=== PATIENT | female | born 1970 | race Caucasian/White ===

== ENCOUNTER 2020-03-15 14:59 | Outpatient (CLI) | payer OTHER, SELFPAY ==
--- NOTE | ~2020-03-15 | MM_ITS ---
EXAMINATION: MM scrn nicola implant BI w rupali HISTORY: Screening mammogram TECHNIQUE: Craniocaudal and mediolateral oblique 3-D tomosynthesis images with implant displacement a nd synthetic 2-D images were generated. Craniocaudal and mediolateral oblique views of the breasts wi thout implant displacement were obtained using full field digital mammography. CAD analysis was submi tted and interpreted. COMPARISON: 11/26/2018, 06/18/2016, 06/12/2016, 12/21/2014 BREAST PARENCHYMAL COMPOSITION: There are scattered areas of fibroglandular density. FINDINGS: There is no evidence of suspicious mass, calcification, or architectural distortion to sugg est malignancy in either breast. There has been no suspicious interval change. IMPRESSION: 1. No mammographic evidence of malignancy. 2. Recommend routine screening mammography in one year. BI-RADS Category 1: Negative Reviewed, dictated and finalized at location A.
== END 2020-03-15 15:00 | disposition home or self-care (01) ==
DX: Z12.31 Encounter for screening mammogram for malignant neoplasm of breast (principal)
CPT/HCPCS: 77063; 77067

== ENCOUNTER 2022-03-21 14:16 | Outpatient (CLI) | payer OTHER, SELFPAY ==
--- NOTE | ~2022-03-21 | MM_ITS ---
EXAMINATION: MM scrn nicola implant BI w rupali HISTORY: Screening mammogram TECHNIQUE: Craniocaudal and mediolateral oblique 3-D tomosynthesis images with implant displacement a nd synthetic 2-D images were generated. Craniocaudal and mediolateral oblique views of the breasts wi thout implant displacement were obtained using full field digital mammography. CAD analysis was submi tted and interpreted. COMPARISON: 03/15/2020, 11/26/2018, 06/12/2016 BREAST PARENCHYMAL COMPOSITION: There are scattered areas of fibroglandular density. FINDINGS: There is no evidence of suspicious mass, calcification, or architectural distortion to sugg est malignancy in either breast. There has been no suspicious interval change. IMPRESSION: 1. No mammographic evidence of malignancy. 2. Recommend routine screening mammography in one year. BI-RADS Category 1: Negative Reviewed, dictated and finalized at location A.
== END 2022-03-21 14:17 | disposition home or self-care (01) ==
DX: Z12.31 Encounter for screening mammogram for malignant neoplasm of breast (principal)
CPT/HCPCS: 77063; 77067

== ENCOUNTER 2023-07-08 09:49 | Outpatient (CLI) | payer OTHER, SELFPAY ==
--- NOTE | ~2023-07-08 | MM_ITS ---
EXAMINATION: MM scrn nicola implant BI w rupali HISTORY: Screening mammogram TECHNIQUE: Craniocaudal and mediolateral oblique 3-D tomosynthesis images with implant displacement a nd synthetic 2-D images were generated. Craniocaudal and mediolateral oblique views of the breasts wi thout implant displacement were obtained using full field digital mammography. CAD analysis was submi tted and interpreted. COMPARISON: 03/21/2022, 03/15/2020, 11/26/2018, 06/18/2016, 06/12/2016 BREAST PARENCHYMAL COMPOSITION: There are scattered areas of fibroglandular density. FINDINGS: There is no evidence of suspicious mass, calcification, or architectural distortion to sugg est malignancy in either breast. There has been no suspicious interval change. IMPRESSION: 1. No mammographic evidence of malignancy. 2. Recommend routine screening mammography in one year. BI-RADS Category 1: Negative Reviewed, dictated and finalized at location A. ANT POLISHER
== END 2023-07-08 09:50 | disposition home or self-care (01) ==
LOC: ANHIMG 09:53
DX: Z12.31 Encounter for screening mammogram for malignant neoplasm of breast (principal)
CPT/HCPCS: 77063; 77067

== ENCOUNTER 2025-03-01 13:33 | Outpatient (CLI) | payer OTHER, SELFPAY ==
--- NOTE | ~2025-03-01 | MM_ITS ---
EXAMINATION: MM scrn nicola implant BI w rupali INDICATION: Asymptomatic, referred for screening mammogram COMPARISON: 07/08/2023 through 03/15/2020 TECHNIQUE: Digital Breast Tomosynthesis CC, MLO, and implant displaced CC and MLO views of Both breasts were obtained with computer-aided detection to assist in interpretation of the study. FINDINGS: There are scattered areas of fibroglandular density. Bilateral breast Retropectoral Saline implants in place appears intact. No focal dominant mass, architectural distortion, or suspicious microcalcifications are identified. There are no features to suggest malignancy. IMPRESSION: 1. No evidence of malignancy in the breasts. 2. Both breasts Retropectoral Saline implants appears intact. Recommend continued screening mammography BI-RADS 1, NEGATIVE Reviewed, dictated and finalized at location C.
--- OUTSIDE RECORDS SUMMARY | 2025-03-01 13:58 | XMS_ITS | Encounter Summary ---
Author Organization [facility] Address [address] [place] [address] Care Team Providers Care Group Art Supervisor Name Role Phone Amparo Barba Primary [facility] [place] Encounter Details Date Type Department Care Team ([facility] st Contact Info) Description 01/14/2023 Orders Only [facility] Medical Group Pain Management [address] [facility] [address] [place] [address] Nasima Kaur, RN Social History Tobacco Use Types Packs/Day Years Used Date Smoking Tobacco: Never Smokeless Tobacco: Never Alcohol Use Standard Drinks/Week Comments Yes 0 (1 standard drink = 0.6 oz pur e alcohol) social AUDIT-C Answer Date Recorded Q1: How often do you have a drink containing alc ohol? Monthly or less 11/07/2022 Q2: How many drinks containi ng alcohol do you have on a typical day when you are drinking? 1 or 2 11/07/2022 Q3: How often do you have si x or more drinks on one occasion? Monthly 11/07/2022 PHQ-2 Answer Date Recorded PHQ-2 Score 0 06/24/2021 Hunger Vital Sign Answer Date Recorded Within the past 12 months, y ou worried that your food would run out before you got the money to buy more. Never true 11/08/19 23 Within the past 12 months, t he food you bought just didn't last and you didn't have money to get more. Never true 11/07/2022 PRAPARE - Transportation Answer Date Re corded In the past 12 months, has l ack of transportation kept you from medical appointments or from getting medications? No 10/14 In the past 12 months, has l ack of transportation kept you from meetings, work, or from getting things needed for daily living? No 11/07/2022 Comments No Sex and Gender Information Value Date Recorded Sex Assigned at Not on file Legal Sex Female 10:16 PM CDT Gender Identity Not on file Sexual Orientation Not on file COVID-19 Exposure Response Date Recorded In the last 10 days, have yo u been in contact with someone who was confirmed or suspected to have Coronavirus/COVID-19? No / Unsure 12/29/2022 2:25 PM CDT documented as of this encounter Plan of Treatment Not on file documented as of this encounter Visit Diagnoses Not on filedocumented in this encounter Additional Health Concerns Infection Onset Date Last Indicated Resolved Time R/O COVID-19 02/14/2025 02/14/2025 02/14/2025 8:16 PM CDT COVID-19 02/14/2025 02/14/2025 documented as of this encounter Care Teams Group Art Supervisor Relationship Specialty Start Date End Date Amparo Barba PA [address] [place] [address] PCP - General Physician Stereo Equipment Repairer 05/22/22 documented as of this encounter
--- OUTSIDE RECORDS SUMMARY | 2025-03-01 13:58 | XMS_ITS | Encounter Summary ---
Author Organization [facility] Address [address] [place] [address] Care Team Providers Care Ela Teacher Name Role Phone Amparo Barba Primary [facility] [place] Encounter Details Date Type Department Care Team (Late st Contact Info) Description 07/10/2021 Orders Only [facility] Medical Group Family Medicine [address] [place] [address] Bibiana Holland CMA Social History Tobacco Use Types Packs/Day Years Used Date Smoking Tobacco: Never Smokeless Tobacco: Never Alcohol Use Standard Drinks/Week Comments Yes 0 (1 standard drink = 0.6 oz pur e alcohol) social PHQ-2 Answer Date Recorded PHQ-2 Score 0 06/24/2021 Comments No Sex and Gender Information Value Date Recorded Sex Assigned at Not on file Legal Sex Female 10:16 PM CDT Gender Identity Not on file Sexual Orientation Not on file documented as of this encounter Plan of Treatment Not on file documented as of this encounter Visit Diagnoses Not on filedocumented in this encounter Additional Health Concerns Infection Onset Date Last Indicated Resolved Time R/O COVID-19 11/05/2022 11/05/2022 11/05/2022 6:58 PM CDT R/O COVID-19 02/14/2025 02/14/2025 02/14/2025 8:16 PM CDT COVID-19 02/14/2025 02/14/2025 documented as of this encounter Care Teams Ela Teacher Relationship Specialty Start Date End Date Amparo Barba PA [address] [place] [address] PCP - General Physician Assisted Living Administrator 05/22/22 documented as of this encounter
--- OUTSIDE RECORDS SUMMARY | 2025-03-01 13:58 | XMS_ITS | Encounter Summary ---
Author Organization [facility] Address [address] [place] [address] Care Team Providers Care Jordan Man Name Role Phone Amparo Barba Primary [facility] [place] Encounter Details Date Type Department Care Team (Late st Contact Info) Description 02/15/2025 Results Follow-Up [facility] [place] [address] [place] [address] Olinda Tierney PA [address] [place], [place] [id number] Covid, Influenza A,B, and RSV by PCR Social History Tobacco Use Types Packs/Day Years [...] Infection Onset Date Last Indicated Resolved Time COVID-19 02/14/2025 02/14/2025 documented as of this encounter Care Teams Jordan Man Relationship Specialty Start Date End Date Amparo Barba PA [address] [place] [address] PCP - General Physician Supervisor Mold Shop 05/22/22 documented as of this encounter
--- OUTSIDE RECORDS SUMMARY | 2025-03-01 13:58 | XMS_ITS | Clinical Summary ---
Author Organization [facility] Address [address] [place] [id number] Care Team Providers Care Shoe Fitter Name Role Phone Amparo Barba Primary [facility] [place] Allergies Active Allergy Reactions Criticality Noted Date Comments Cefazolin Other/Unknown (See Comments) 024 Fluconazole Other/Unknown (See Comments) 2022 Cephalexin Other/Unknown (See Comments) 024 Sulfa Antibiotics Other/Unknown (See Comments) Medium 11/04/2022 Vancomycin Hives Medium 11/05/2022 Medications UNABLE TO FIND bio estrogen and testosterone cream Active flecainide (TAMBOCOR) 150 MG tabletIndication s:Cardioversion of Atrial Fibrillation,Car dioversion of Atrial Flutter Take 1 tablet (150 mg) by mouth as needed Indications: Atrial Fibrillation Electrically Shocked to Normal Rhythm, Atrial Flutter Electrically Shocked to Normal Rhythm 3 tablet 02/23/20 25 026 Active rivaROXABAN (XARELTO) 20 MG tabletIndication s:Atrial Fibrillation Take 1 tablet (20 mg) by mouth daily Indications: Atrial Fibrillation 30 tablet 2 02/23/20 25 025 Active rivaROXABAN (XARELTO) 20 MG tablet Take 1 tablet (20 mg) by mouth daily 025 Discontin ued(Reord er) Active Problems Problem Noted Date Diagnosed Date Anxiety 02/02/2024 Depression 02/02/2024 Essential hypertension 02/02/2024 Menopausal depression 02/02/2024 Adnexal tenderness 02/02/2024 Paroxysmal atrial fibrillation 02/02/2024 Near syncope 02/02/2024 Obesity 02/02/2024 Syncope 02/02/2024 Encounters Date Type Department Care Team Description 02/22/2025 8:45 AM CDT Office Visit [facility] Cardiology [address] [place] [phone] Marcus Garcia PA Paroxysmal atrial fibrillation (HCC) (Primary Dx); Atrial flutter, paroxysmal (HCC); Encounter for loop recorder check; BMI 32.0-32.9,adult; Elevated blood pressure reading in office without diagnosis of hypertension 02/22/2025 Telephone [facility] Cardiology [address] [place] [phone] Marcus Garcia PA Other 02/14/2025 Telephone [facility] Cardiology [address] [place] [phone] Marcus Garcia PA Atrial Fibrillation from Last 3 Months Immunizations Immunization Administration Dates Next Due TD (Adult), Adsorbed 03/19/1999 Family History Medical History Relation Name Comments Heart Disease Other mother's family Relation Name Status Comments Other mother's family Social History Tobacco Use Types Packs/Day Years Used Date Smoking Tobacco: Never Tobacco Cessation:Counseling Given: No Alcohol Use Standard Drinks/Week Comments Yes 0 (1 standard drink = 0.6 oz pur e alcohol) occasional Alcohol Use Answer Date Recorded Frequency of Alcohol Consumption Not on file 02/02/2024 Average Number of Drinks Not on file 024 Frequency of Binge Drinking Not on file 01/14 Alcohol Use Status Yes 02/02/2024 Average alcohol consumption Not on file 01/14 Comments Unknown Sex and Gender Information Value Date Recorded Sex Assigned at Not on file Legal Sex Female 10:05 PM CDT Gender Identity Not on file Sexual Orientation Straight 02/02/2024 8: 50 PM CDT Last Filed Vital Signs Vital Sign Reading Time Taken Comments Blood Pressure 134/76 02/22/2025 9:12 AM CDT Pulse 57 02/22/2025 9:12 AM CDT Temperature 36.7 C (98.1 F) 11/24/2016 8:53 PM CDT Respiratory Rate 12 09/28/2023 12:00 AM CDT Oxygen Saturation 98% 02/22/2025 9:12 AM CDT Inhaled Oxygen Concentration - - Weight 92.1 kg (203 lb) 02/22/2025 9:12 AM CDT Height 167.6 cm (5' 6) 02/22/2025 9:12 AM CDT Body Mass Index 32.77 02/22/2025 9:12 AM CDT Plan of Treatment Health Maintenance Due Date Last Done Comments HIV Screening 1970 Hepatitis C Screening ages 1 8 to 79 once 1970 MMR VACCINES (1 of 1 - Standard series) 10/11/1972 DEPRESSION SCREENING 1983 BMI Above/Below Normal Parameters 10/11/1989 Diabetes Screening 10/11/1989 HEPATITIS B VACCINES (1 of 3 - 19+ 3-dose series) 10/11/1990 CERVICAL CANCER SCREENING 10/11/1992 ADULT TETANUS 03/19/2009 03/19/1999 BREAST CANCER SCREENING 2011 Colon Cancer Screening 10/11/2016 LIPID TESTING 10/11/2016 YEARLY WELLNESS EXAM 12/03/2019 12/02/2018, 02/16/2018 Zoster Vaccine (Recombinant Vaccine) (1 of 2) 10/11/2021 Influenza Vaccine 01/13/2025 COVID-19 Immunization ( season) 2025 HEPATITIS A VACCINES Aged Out No long er eligible based on patient's age to complete this topic HIB VACCINES Aged Out No longer eligi ble based on patient's age to complete this topic HPV VACCINES Aged Out No longer eligi ble based on patient's age to complete this topic IPV VACCINES Aged Out No longer eligi ble based on patient's age to complete this topic MENINGOCOCCAL VACCINE Aged Out No mariaelena lola eligible based on patient's age to complete this topic Meningococcal B Vaccine Aged Out No l onger eligible based on patient's age to complete this topic Pneumococcal Vaccine: Peds t o 50 & At-Risk Patients Aged Out No longer eligible based on patient's age to complete this topic ROTAVIRUS VACCINES Aged Out No longer eligible based on patient's age to complete this topic Medical Devices Implanted Type Area Erosion Control Coordinator Device Identifier Shelf Expiration Date Model / Serial / Lot Assert-Iq 3+-01/12/2023 Implanted:12/15 by Clarence Simon MD (Quantity not on file) Implantable Loop Recorder Hartley [id number] / [id number] / Procedures Procedure Name Priority Date/Time Associated Diagnosis Comments NON-INVASIVE CARDIOLOGY 02/14/2025 12:00 AM CDT NON-INVASIVE CARDIOLOGY 02/07/2025 12:00 AM CDT from Last 3 Months Results * NON-INVASIVE CARDIOLOGY (02/14/2025 12:00 AM CDT) Only the most recent of2 resultswithin the time period is included. Anatomical Region Laterality Modality Other us Clarence Simon MD TRANSCRIPTIONS Final Result from Last 3 Months Insurance Care Teams Shoe Fitter Relationship Specialty Start Date End Date Amparo Barba PA [address] [place] [id number] PCP - General Physician Direct Service Professional 02/02/24
--- OUTSIDE RECORDS SUMMARY | 2025-03-01 13:59 | XMS_ITS | Encounter Summary ---
Author Organization [facility] Address [address] [place] [address] Care Team Providers Care Sanitary Plumber Name Role Phone Amparo Barba Primary Care [facility] Encounter Details Date Type Department Care Team (Late st Contact Info) Description 12/30/2022 Orders Only [facility] [address] [place] [address] Gracie Guillermo MD [address] [place] [id number] Social History Tobacco Use Types Packs/Day Years [...] documented as of this encounter Care Teams Sanitary Plumber Relationship Specialty Start Date End Date Amparo Barba PA [address] [place] [address] PCP - General Physician Seed Core Operator 05/22/22 documented as of this encounter
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
--- OUTSIDE RECORDS SUMMARY | 2025-03-01 13:59 | XMS_ITS | Clinical Summary ---
Author Organization [facility] Address [address] [place] [address] Care Team Providers Care Software Systems Architect Name Role Phone Amparo Barba Primary Care [facility] Allergies Active Allergy Reactions Criticality Noted Date Comments Cefazolin Other (see comments) Medium 02/02/2024 Cephalexin Other (see comments) Medium 02/02/2024 Fluconazole 12/29/2022 Sulfa (Sulfonamide Antibiotics) Medium 10/14 Vancomycin Hives Medium 11/05/2022 Medications ESTRADIOL, BULK, MISC Use as directed Active apixaban (ELIQUIS) 5 mg tablet Take 1 tablet (5 mg total) by mouth 2 (two) times a day 02/18/20 Active HYDROcodone-aceta minophen (NORCO) 5-325 mg per tabletIndications :Cervical radiculopathy Take 1 tablet by mouth every 6 (six) hours as needed for severe pain 10 tablet 01/24/20 22 025 Discontinued acetaminophen-cod eine (TYLENOL #3) 300-30 mg per tabletIndications :Cellulitis of leg, right Take 1 tablet by mouth every 4 (four) hours as needed for moderate pain 12 tablet 11/05/19 23 025 Discontinued Active Problems Problem Noted Date Diagnosed Date Cellulitis of leg, right 11/06/2022 Cellulitis 11/05/2022 Chronic bilateral low back pain without sciatica 08/19/2021 Assessment & Plan (08/19/2021 3:58 PM [employer]): This has improved with the dry needling at her chiropractor. I will have her notify us if there are any changes. Chronic right shoulder pain 08/19/2021 Assessment & Plan (08/19/2021 3:59 PM [employer]): I will have her continue her current regimen of PT and to continue to follow with her orthopedic surgeon (Dr. Sanders). Hormone disorder 02/01/2020 Assessment & Plan (04/16/2021 2:53 PM CDT): I will have her continue to follow with Dr. Anderson. I will have her notify us if there are any changes. Mixed hyperlipidemia 02/01/2020 Assessment & Plan (04/16/2021 2:53 PM CDT): Lipid abnormalities are improving with lifestyle modifications. Nutritional counseling was provided. and Lipid-lowering therapy was not prescribed due to patient refusal. Lipids will be reassessed in 6 months. Assessment & Plan (02/01/2020 11:56 AM CDT): Lipid abnormalities are improving with lifestyle modifications. Nutritional counseling was provided. and Lipid-lowering therapy was not prescribed due to patient refusal. Lipids will be reassessed in 6 months. This patient would like to manage this with diet and exercise. Encounters Date Type Department Care Team Description 02/15/2025 Results Follow-Up [facility] in [place] [address] [place] [address] Olinda Tierney PA Covid, Influenza A,B, and RSV by PCR 02/14/2025 2:55 PM CDT Office Visit [facility] [place] [address] [place] [address] Maria Elena Caceres NP Anderson, Anna L, PA URI with cough and congestion (Primary Dx) from Last 3 Months Immunizations Immunization Administration Dates Next Due Td, Unspecified 03/19/1999 Family History Medical History Relation Name Comments Heart disease Maternal Grandfather Heart disease Maternal Grandmother Heart disease Mother's Sister Relation Name Status Comments Maternal Grandfather Maternal Grandmother Mother's Sister Social History Tobacco Use Types Packs/Day Years Used Date Smoking Tobacco: Never Smokeless Tobacco: Never Tobacco Cessation:Counseling Given: No Alcohol [...] on file Sexual Orientation Not on file Last Filed Vital Signs Vital Sign Reading Time Taken Comments Blood Pressure 116/72 02/14/2025 3:11 PM CDT Pulse 100 02/14/2025 3:11 PM CDT Temperature 39.4 C (103 F) 02/14/2025 3:11 PM CDT Respiratory Rate 20 02/14/2025 3:11 PM CDT Oxygen Saturation 95% 02/14/2025 3:11 PM CDT Inhaled Oxygen Concentration - - Weight 90.7 kg (200 lb) 02/14/2025 3:11 PM CDT Height 167.6 cm (5' 6) 02/14/2025 3:11 PM CDT Body Mass Index 32.28 02/14/2025 3:11 PM CDT Plan of Treatment Health Maintenance Due Date Last Done Comments CT Colonography 1971 Colonoscopy 1971 Colorectal Cancer Screening 1971 FIT-DNA 1971 FIT 1971 FOBT 1971 Pap Smear 1971 Sigmoidoscopy 1971 MMR Vaccines (1 of 1 - Standard series) 10/11/1972 Depression Screening 1983 Varicella Vaccines (1 of 2 - 13+ 2-dose series) 10/11/1984 Hepatitis B Vaccines (1 of 3 - 19+ 3-dose series) 10/11/1990 DTaP,Tdap,and Td Vaccines (2 - Td or Tdap) 05/22/2016 05/22/2006, 03/19/1999 Mammogram 11/27/2019 11/26/2018 AMB Pneumococcal 50+ yrs (1 of 1 - PCV) 10/11/2021 Zoster Series Vaccines (1 of 2) 10/11/2021 COVID-19 Vaccine (1 - 2023-2 5 season) 2025 Influenza Vaccine (#1) 2025 RSV Vaccines and 60 Years or Older (1 - 1-dose 75+ series) 10/11/2046 HIB Vaccines Aged Out No longer eligi ble based on patient's age to complete this topic HPV Vaccines Aged Out No longer eligi ble based on patient's age to complete this topic Hepatitis A Vaccines Aged Out No long er eligible based on patient's age to complete this topic IPV Vaccines Aged Out No longer eligi ble based on patient's age to complete this topic Meningococcal ACWY Vaccine Aged Out N o longer eligible based on patient's age to complete this topic Meningococcal B Vaccine Aged Out No l onger eligible based on patient's age to complete this topic RSV Vaccines <20 Months Aged Out No l onger eligible based on patient's age to complete this topic Procedures Procedure Name Priority Date/Time Associated Diagnosis Comments COVID, INFLUENZA A,B, AND RSV BY PCR Routine 02/14/2025 3:23 PM CDT URI with cough and congestion from Last 3 Months Results * (ABNORMAL) Covid, Influenza A,B, and RSV by PCR (02/14/2025 3:23 PM CDT) Influenza A PCR Negative Negative 5 8:16 PM CDT [facility] Influenza B PCR Negative Negative 5 8:16 PM CDT [facility] Resp Syncytial Virus PCR Negative Negative 02/14/2025 8:16 PM CDT [facility] SARS-CoV-2 by PCR Positive(A) Negative 2024 8:16 PM CDT [facility] Comment:This test has been a uthorized by FDA under an Emergency Use Authorization (EUA). This test is only authorized for the duration of time the declaration that circumstances exist justifying the authorization of the emergency use of in vitro diagnostic tests for detection of SARS-CoV-2 virus and/or diagnosis of COVID-19 infection under section 564(b)(1) of the Act, 21 U.S.C. 360bbb-3(b)(1), unless the authorization is terminated or revoked sooner. When diagnostic testing is negative, the possibility of a false negative result should be considered in the context of a patient's recent exposures and the presence of clinical signs and symptoms consistent with COVID-19. An individual without symptoms of COVID-19 and who is not shedding SARS-CoV-2 virus would expect to have a negative (not detected) result in this assay. Swab Nasopharyngeal structure / Unknown Non-blood Collection / Unknown 02/14/2025 3:23 PM CDT 02/14/2025 6:38 PM CDT us Ol[facility] MICROBIOLOGY - GENERAL OR DERABLES Final Result [facility] [address] [id number] from Last 3 Months Additional Health Concerns Infection Onset Date Last Indicated COVID-19 02/14/2025 02/14/2025 Insurance CIGNA CIGNA CIGNA [employer] [facility] Advance Directives For more information, please contact: [phone] * Full Code (Latest Code Status on File) Date Activated Date Inactivated Comments 11/05/2022 7:18 PM 11/09/2022 5:22 PM Care Teams Software Systems Architect Relationship Specialty Start Date End Date Amparo Barba PA [address] [place] [address] PCP - General Physician Lumber Tailer 05/22/22
--- OUTSIDE RECORDS SUMMARY | 2025-03-01 13:59 | XMS_ITS | Encounter Summary ---
Author Organization [facility] Address [address] [place] [address] Care Team Providers Care Biomass Production Manager Name Role Phone Amparo Barba Primary Care [facility] Encounter Details Date Type Department Care Team (Late st Contact Info) Description 08/31/2021 Orders Only [facility] Family [facility] [address] [place] [phone] Rei Lorenzana PA [address] [place] [address] Right foot pain; Left hand pain; Chronic right shoulder pain Social History Tobacco Use Types Packs/Day Years [...] Procedure Name Priority Date/Time Associated Diagnosis Comments AMB REFERRAL TO ORTHOPEDIC SURGERY Routine 08/07/2021 2:40 PM DIRECTOR OF CLINICAL SERVICES Right foot pain Left hand pain Chronic right shoulder pain documented in this encounter Results * Ambulatory referral to Orthopedic Surgery (08/07/2021 2:40 PM DIRECTOR OF CLINICAL SERVICES) us Rei [facility] OUTPATIENT REFERRAL ORDERABL ES Final Result documented in this encounter Visit Diagnoses Diagnosis Right foot pain Pain in soft tissues of limb Left hand pain Pain in soft tissues of limb Chronic right shoulder pain Pain in joint, shoulder region documented in this encounter Additional Health Concerns Infection Onset Date Last Indicated Resolved Time R/O COVID-11/05/2022 11/05/2022 11/05/2022 6:58 PM CDT R/O COVID-02/14/2025 02/14/2025 02/14/2025 8:16 PM CDT COVID-19 02/14/2025 02/14/2025 documented as of this encounter Care Teams Biomass Production Manager Relationship Specialty Start Date End Date Amparo Barba PA [address] [place] [address] PCP - General Physician Advertising Display Rotator 05/22/22 documented as of this encounter
--- OUTSIDE RECORDS SUMMARY | 2025-03-01 13:59 | XMS_ITS | Clinical Summary ---
Author Organization [facility] Address [address] [place] [phone] Phone Care Team Providers Care Compensation Specialist Name Role Phone Unavailable Primary Care Provider Unavailabl e Allergies No known active allergies Medications liothyronine (CYTOMEL) 5 mcg Tablet 15 mcg. 02/11/2018 Active Active Problems Problem Noted Date Diagnosed Date Hypothyroidism 02/16/2018 Social History Tobacco Use Types Packs/Day Years Used Date Smoking Tobacco: Never Smokeless Tobacco: Never Comments Unknown Sex and Gender Information Value Date Recorded Sex Assigned at Not on file Legal Sex Female 11:14 AM CDT Gender Identity Not on file Sexual Orientation Not on file Last Filed Vital Signs Vital Sign Reading Time Taken Comments Blood Pressure 110/70 12/02/2018 11:12 AM CDT Pulse 76 12/02/2018 11:12 AM CDT Temperature - - Respiratory Rate - - Oxygen Saturation 98% 02/16/2018 10:23 AM CDT Inhaled Oxygen Concentration - - Weight 86.2 kg (190 lb) 12/02/2018 11:12 AM CDT Height 167.6 cm (5' 6) 12/02/2018 11:12 AM CDT Body Mass Index 30.67 12/02/2018 11:12 AM CDT Plan of Treatment Health Maintenance Due Date Last Done Comments DTAP/TDAP/TD VACCINES (1 - Tdap) 10/11/1990 HEPATITIS B VACCINES (1 of 3 - 19+ 3-dose series) 09/14 HPV/Cotest (21-29) 10/11/1992 CERVICAL CANCER SCREENING 10/11/2001 HPV/Cotest (30-65) 10/11/2001 PAP SMEAR 10/11/2001 BREAST CANCER SCREENING 2011 COLORECTAL SCREENING 10/11/2016 Colorectal Cancer Screening 10/11/2016 FIT-DNA Q 3 years 10/11/2016 FIT/FOBT Q 1 year 10/11/2016 Flex Sig/CT Colonography Q 5 years 10/11/2016 ZOSTER VACCINE (1 of 2) 10/11/2021 INFLUENZA VACCINE (#1) 2025 Insurance [employer] BLUE PREFERRED
== END 2025-03-01 13:34 | disposition home or self-care (01) ==
DX: Z12.31 Encounter for screening mammogram for malignant neoplasm of breast (principal)
CPT/HCPCS: 77063; 77067